=== PATIENT | female | born 1970 | race American Indian/Alaskan Native ===

== ENCOUNTER 2021-11-16 13:48 | Emergency (ER) | payer SELFPAY ==
--- NOTE | 2021-11-16 13:55 | Emergency Department Report ---
Blank Doc - Documentation Documentation: This is a 51-year-old female that presents with chest tightness. Patient also had a syncopal episode several days ago. 1- This is a initial triage assessment/medical screening only. Full assessment and work-up will be completed once the patient is in proper hospital gown, ED bed and in a private room setting. This initial assessment/diagnostic orders/clinical plan/ treatment(s) is/are subject to change based on pt's health status, clinical progression and re-assessment by fellow clinical providers in the ED. Further treatment and workup at subsequent clinical providers discretion. Patient/guardians urged not to elope from ED as their condition may be serious if not clinically assessed and managed. 2-cardiac workup The patient was evaluated in the emergency department for symptoms described in the history of present illness. He/she was evaluated in the context of the global COVID-19 pandemic, which necessitated consideration that the patient might be at risk for infection with the virus that causes COVID-19. Institutional protocols and algorithms that pertain to the evaluation of patients at risk for COVID-19 are in a state of rapid change based on information released by regulatory bodies including the CDC and federal and state organizations. These policies and algorithms were followed during the patient's care in the emergency department. Please note that these policies, procedures and recommendations changed on a rapid basis.
[2021-11-16 13:57] VITALS: BP 142/85
[2021-11-16 14:48] LABS: Basophils % (Auto) 0.3 % (0.0-1.8); Eosinophils # (Auto) 0.1 K/mm3 (0.0-0.4); Eosinophils % (Auto) 0.9 % (0.0-4.3); Hematocrit 39.6 % (30.3-42.9); Hemoglobin 13.4 gm/dl (10.1-14.3); Lymphocytes # (Auto) 1.4 K/mm3 (1.2-5.4); Lymphocytes % (Auto) 22.7 % (13.4-35.0); Mean Corpuscular HGB Conc 34 % (30-34); Mean Corpuscular Volume 88 fl (79-97); Monocytes # (Auto) 0.4 K/mm3 (0.0-0.8); Monocytes % (Auto) 6.5 % (0.0-7.3); Platelet Count 216 K/mm3 (140-440); Red Blood Count 4.49 M/mm3 (3.65-5.03); Red Cell Distribution Width 13.5 % (13.2-15.2)
[2021-11-16 14:50] LABS: Alanine Aminotransferase 12 units/L (7-56); Albumin 4.2 g/dL (3.9-5); BUN/Creatinine Ratio 9; Blood Urea Nitrogen 8 mg/dL (7-17); Calcium 9.2 mg/dL (8.4-10.2); Hemolysis Index 39
[2021-11-16 15:10] LABS: INR 1.06 (0.87-1.13)
[2021-11-16 15:12] LABS: Partial Thromboplastin Time 45.6 Sec. (24.2-36.6)
--- NOTE | 2021-11-16 15:15 | XRay Report ---
CHEST 2 VIEWS INDICATION / CLINICAL INFORMATION: Chest Pain. COMPARISON: None available. FINDINGS: SUPPORT DEVICES: None. HEART / MEDIASTINUM: No significant abnormality. LUNGS / PLEURA: There is minimal airspace opacity in the lingula No pneumothorax. ADDITIONAL FINDINGS: No significant additional findings. IMPRESSION: 1. There is minimal airspace opacity in the lingula which could represent atelectasis or evolving pne umonia. Signer Name: Fish Beltrán MD Signed: 11/16/2021 3:10 PM Workstation Name: [id number]
--- NOTE | 2021-11-17 08:32 | Electrocardiograph Report ---
[facility] Test Date: 2021-11-16 Test Time: 13:59:03 Pat Name: REYNALDO RAMIREZ Department: Room: Gender: F Equipment Cleaner: GUALBERTO : 1970 Requested By: SILVIO RAMOS Order Number: [id number] Reading MD: Marlon Shafer Measurements Intervals [place] Rate: 90 P: 44 [place]: 153 QRS: 0 QRSD: 68 T: 36 QT: 369 QTc: 453 Interpretive Statements Sinus rhythm nonspecific st-t No previous ECG available for comparison Electronically Signed On 11-17-2021 8:31:59 EDT by Marlon Shafer
== END 2021-11-17 17:14 | disposition left against medical advice (07) ==
LOC: ED 13:48
DX: R07.9 Chest pain, unspecified (principal); Z53.21 Procedure and treatment not carried out due to patient leaving prior to being seen by health care provider
CPT/HCPCS: 36415; 71046; 80053; 84484; 85025; 85610; 85730; 93005